=== PATIENT | female | born 1975 | race Caucasian/White ===

== ENCOUNTER 2018-10-08 12:53 | Inpatient (IN) | payer MEDICAID ==
[2018-10-08] MEDS: ACCU-CHEK XX ×4 (13:30→21:28)
[2018-10-08] MEDS ORDERED: GLUCOSE GEL 15 GRAM TUBE BUCCAL (14:00)
[2018-10-08] MEDS ORDERED: GLUCOSE GEL 15 GRAM TUBE PO ×2 (14:00)
[2018-10-08] MEDS ORDERED: DEXTROSE 50% 50 ML SYRINGE IV ×2 (14:00)
[2018-10-08] MEDS ORDERED: GLUCAGON 1 MG INJ IM (14:00)
[2018-10-08] MEDS: INSULIN ASPART [NOVOLOG] 3 ML PEN SC ×3 (15:04→20:36)
[2018-10-08] MEDS: NPH, HUMAN INSULIN ISOPHANE 3ML VIAL SC ×2 (15:08→23:02)
[2018-10-08 15:11] LABS: ADD MAN DIFF? NO
[2018-10-08 15:15] LABS: BASOPHILS % 0.5 % (0.0-2.0); EOSINOPHILS # 0.1 10^3/ul (0.0-0.5); EOSINOPHILS % 0.8 % (0.0-7.0); HEMATOCRIT 41.3 % (37.0-47.0); HEMOGLOBIN 14.1 g/dl (12.0-16.0); LYMPHOCYTES # 1.2 10^3/ul (0.8-2.9); LYMPHOCYTES % 14.2 % (15.0-51.0); MEAN CORPUSCULAR HEMOGLOBIN 28.8 pg (29.0-33.0); MEAN CORPUSCULAR HGB CONC 34.1 g/dl (32.0-37.0); MEAN CORPUSCULAR VOLUME 84.5 fl (82.0-101.0); MEAN PLATELET VOLUME 11.1 fl (7.4-10.4); MONOCYTE # 0.5 10^3/ul (0.3-0.9); MONOCYTES % 5.7 % (0.0-11.0); NEUTROPHIL # 6.8 10^3/ul (1.6-7.5); NEUTROPHILS % 78.6 % (39.0-77.0); PLATELET COUNT 289 10^3/UL (140-415); RED BLOOD COUNT 4.89 10^6/ul (4.20-5.40); RED CELL DISTRIBUTION WIDTH 11.9 % (11.5-14.5)
[2018-10-08 15:15] LABS: WHITE BLOOD COUNT 8.7 10^3/ul (4.8-10.8)
[2018-10-08 15:24] LABS: ADD UMIC NO; UR ASCORBIC ACID NEGATIVE (NEGATIVE); UR BILIRUBIN (Dip) NEGATIVE (NEGATIVE); UR BLOOD (Dip) NEGATIVE (NEGATIVE); UR CLARITY CLEAR (CLEAR); UR COLOR YELLOW (YELLOW); UR GLUCOSE (Dip) 3+ mg/dL (NEGATIVE); UR KETONES (Dip) 2+ mg/dL (NEGATIVE); UR LEUKOCYTE ESTERASE (Dip) NEGATIVE Leu/ul (NEGATIVE); UR NITRITE (Dip) NEGATIVE (NEGATIVE); UR SPECIFIC GRAVITY (Dip) 1.041 (1.003-1.030); UR TOTAL PROTEIN (Dip) NEGATIVE (NEGATIVE); UR UROBILINOGEN (Dip) NEGATIVE (NEGATIVE)
[2018-10-08 15:39] LABS: ALANINE AMINOTRANSFERASE 18 IU/L (13-69); ALBUMIN 4.2 g/dl (3.3-4.9); ALBUMIN/GLOBULIN RATIO 1.27; ALKALINE PHOSPHATASE 97 IU/L (42-121); ANION GAP 10 (5-13); ASPARTATE AMINO TRANSFERASE 17 IU/L (15-46); BILIRUBIN,INDIRECT 0.4 mg/dl (0-1.1); BILIRUBIN,TOTAL 0.4 mg/dl (0.2-1.3); BLOOD UREA NITROGEN 14 mg/dl (7-20); CALCIUM 9.7 mg/dl (8.4-10.2); CARBON DIOXIDE 22 mmol/L (21-31); CHLORIDE 104 mmol/L (97-110); CREATININE 0.31 mg/dl (0.44-1.00); Estimated GFR > 60 mL/min (>60); GLUCOSE 252 mg/dl (70-220); POTASSIUM 4.1 mmol/L (3.5-5.1); SODIUM 136 mmol/L (135-144); TOTAL PROTEIN 7.5 g/dl (6.1-8.1)
[2018-10-08 17:04] LABS: HEMOGLOBIN A1C 11.7 % (0-5.9)
[2018-10-08] MEDS ORDERED: INSULIN ASPART [NOVOLOG] 3 ML PEN SC (17:35)
[2018-10-09] MEDS: ACCU-CHEK XX ×9 (06:00→21:37)
[2018-10-09] MEDS: NPH, HUMAN INSULIN ISOPHANE 3ML VIAL SC ×2 (09:05→20:46)
[2018-10-09] MEDS: INSULIN ASPART [NOVOLOG] 3 ML PEN SC ×4 (09:06→17:55)
[2018-10-09 13:21] LABS: COLLECTION PERIOD 24 hrs
[2018-10-09 13:48] LABS: CREATININE,URINE RANDOM 36.31 mg/dl (20-320)
[2018-10-09 13:58] LABS: COLLECTION PERIOD 24 hrs
[2018-10-09 13:59] LABS: 24HR URINE TOTAL PROTEIN 356.3 mg/24hrs (42.0-225.0); VOLUME 2375 ml/24hrs; VOLUME 2375 mls
[2018-10-09 14:03] LABS: CREATININE CLEARANCE 193.2 mls/min (84.0-162.0); SCRET 0.31 mg/dl (0.44-1.00)
[2018-10-10] MEDS: ACCU-CHEK XX ×6 (07:30→17:41)
[2018-10-10] MEDS: NPH, HUMAN INSULIN ISOPHANE 3ML VIAL SC ×2 (08:24→21:51)
[2018-10-10] MEDS: INSULIN ASPART [NOVOLOG] 3 ML PEN SC ×2 (08:25→17:43)
[2018-10-11] MEDS: ACCU-CHEK XX ×7 (07:30→20:05)
[2018-10-11] MEDS: NPH, HUMAN INSULIN ISOPHANE 3ML VIAL SC ×2 (09:34→21:45)
[2018-10-11] MEDS: INSULIN ASPART [NOVOLOG] 3 ML PEN SC ×3 (09:35→17:47)
[2018-10-12] MEDS: ACCU-CHEK XX ×5 (08:45→20:58)
[2018-10-12] MEDS: NPH, HUMAN INSULIN ISOPHANE 3ML VIAL SC ×2 (09:07→21:16)
[2018-10-12] MEDS: INSULIN ASPART [NOVOLOG] 3 ML PEN SC ×3 (09:10→17:53)
[2018-10-13] MEDS: ACCU-CHEK XX ×4 (09:17→20:57)
[2018-10-13] MEDS: INSULIN ASPART [NOVOLOG] 3 ML PEN SC ×2 (09:26→18:07)
[2018-10-13] MEDS: NPH, HUMAN INSULIN ISOPHANE 3ML VIAL SC ×2 (09:31→21:16)
[2018-10-13] MEDS: MAGNESIUM HYDROXIDE 30ML CUP PO (15:05)
[2018-10-13] MEDS: ACETAMINOPHEN 325 MG TAB PO (15:05)
[2018-10-14] MEDS: INSULIN ASPART [NOVOLOG] 3 ML PEN SC ×2 (08:39→18:08)
[2018-10-14] MEDS: NPH, HUMAN INSULIN ISOPHANE 3ML VIAL SC ×2 (08:40→22:21)
[2018-10-14] MEDS: ACCU-CHEK XX ×4 (19:00→20:07)
[2018-10-15] MEDS: ACCU-CHEK XX ×4 (08:40→20:26)
[2018-10-15] MEDS: NPH, HUMAN INSULIN ISOPHANE 3ML VIAL SC ×2 (08:48→20:37)
[2018-10-15] MEDS: INSULIN ASPART [NOVOLOG] 3 ML PEN SC ×2 (08:56→18:11)
[2018-10-15] MEDS: ACETAMINOPHEN 325 MG TAB PO (23:17)
[2018-10-16] MEDS: ACCU-CHEK XX ×4 (08:30→20:35)
[2018-10-16] MEDS: NPH, HUMAN INSULIN ISOPHANE 3ML VIAL SC ×2 (09:29→21:36)
[2018-10-16] MEDS: INSULIN ASPART [NOVOLOG] 3 ML PEN SC ×2 (09:31→18:28)
[2018-10-16] MEDS: ACETAMINOPHEN 325 MG TAB PO ×2 (13:41→16:47)
[2018-10-16] MEDS: ONDANSETRON 4 MG INJ IV (17:15)
[2018-10-16] MEDS: DEXTROSE 5%-LR 1,000 ML IV (17:16)
[2018-10-16] MEDS: LACTATED RINGER'S 1,000 ML IV (17:16)
[2018-10-16 18:13] LABS: ADD MAN DIFF? NO
[2018-10-16 18:15] LABS: WHITE BLOOD COUNT 8.4 10^3/ul (4.8-10.8)
[2018-10-16 18:15] LABS: BASOPHIL # 0.1 10^3/ul (0.0-0.1); BASOPHILS % 0.6 % (0.0-2.0); EOSINOPHILS # 0.1 10^3/ul (0.0-0.5); EOSINOPHILS % 0.7 % (0.0-7.0); HEMATOCRIT 41.3 % (37.0-47.0); HEMOGLOBIN 13.8 g/dl (12.0-16.0); LYMPHOCYTES # 1.6 10^3/ul (0.8-2.9); LYMPHOCYTES % 18.7 % (15.0-51.0); MEAN CORPUSCULAR HEMOGLOBIN 28.8 pg (29.0-33.0); MEAN CORPUSCULAR HGB CONC 33.4 g/dl (32.0-37.0); MEAN CORPUSCULAR VOLUME 86.2 fl (82.0-101.0); MEAN PLATELET VOLUME 10.1 fl (7.4-10.4); MONOCYTE # 0.4 10^3/ul (0.3-0.9); MONOCYTES % 4.3 % (0.0-11.0); NEUTROPHIL # 6.3 10^3/ul (1.6-7.5); NEUTROPHILS % 75.3 % (39.0-77.0); PLATELET COUNT 287 10^3/UL (140-415); RED BLOOD COUNT 4.79 10^6/ul (4.20-5.40)
[2018-10-16 18:33] LABS: ALANINE AMINOTRANSFERASE 16 IU/L (13-69); ALBUMIN 3.9 g/dl (3.3-4.9); ALBUMIN/GLOBULIN RATIO 1.21; ALKALINE PHOSPHATASE 62 IU/L (42-121); ANION GAP 8 (5-13); ASPARTATE AMINO TRANSFERASE 24 IU/L (15-46); BILIRUBIN,INDIRECT 0.4 mg/dl (0-1.1); BILIRUBIN,TOTAL 0.4 mg/dl (0.2-1.3); BLOOD UREA NITROGEN 13 mg/dl (7-20); CALCIUM 9.2 mg/dl (8.4-10.2); CARBON DIOXIDE 26 mmol/L (21-31); CHLORIDE 102 mmol/L (97-110); CREATININE 0.35 mg/dl (0.44-1.00); Estimated GFR > 60 mL/min (>60); GLUCOSE 95 mg/dl (70-220); POTASSIUM 3.6 mmol/L (3.5-5.1); SODIUM 136 mmol/L (135-144); TOTAL PROTEIN 7.1 g/dl (6.1-8.1)
[2018-10-17] MEDS: LACTATED RINGER'S 1,000 ML IV ×2 (01:22→10:03)
[2018-10-17] MEDS: INSULIN ASPART [NOVOLOG] 3 ML PEN SC (08:53)
[2018-10-17] MEDS: NPH, HUMAN INSULIN ISOPHANE 3ML VIAL SC (08:54)
[2018-10-17] MEDS: ACCU-CHEK XX ×2 (08:55→11:21)
[2018-10-17] MEDS: PYRIDOXINE 50 MG TAB PO ×2 (09:48→10:03)
[2018-10-17] MEDS ORDERED: INSULIN ASPART [NOVOLOG] 3 ML PEN SC (17:35)
== END 2018-10-17 15:45 | disposition home or self-care (01) | DRG 833 ==
LOC: L-D 12:53 → PP1 10-09 06:26
DX: O24.111 Pre-existing type 2 diabetes mellitus, in pregnancy, first trimester (principal); E11.9 Type 2 diabetes mellitus without complications; Z3A.01 Less than 8 weeks gestation of pregnancy; Z79.4 Long term (current) use of insulin
CPT/HCPCS: 76801; 76817; 80053; 81003; 82575; 82962; 83036; 84156; 84702; 85025; 93005